=== PATIENT | female | born 1995 | race Caucasian/White ===

== ENCOUNTER 2022-03-31 20:33 | Emergency (ER) | payer BC ==
[~2022-03-31] VITALS: Ht 167.6 cm; Wt 131.5 kg
[2022-03-31 20:52] VITALS: BP_SYST 142
[2022-03-31] MEDS ORDERED: LIDOCAINE 1% IM ONE (21:30)
[2022-03-31] MEDS ORDERED: KETOROLAC TROMETHAMINE 60 MG/2 ML VIAL IM ONE (21:30)
[2022-03-31] MEDS ORDERED: CEFTRIAXONE IM ONE (21:30)
[2022-03-31] MEDS ORDERED: NITR-85 PO (21:43)
[2022-03-31] MEDS ORDERED: NAPR-690 PO (21:43)
[2022-03-31] MEDS ORDERED: ONDANSETRON 4 MG ODT TAB ONE (21:47)
[2022-03-31 21:55] VITALS: BP_SYST 122
[2022-03-31] MEDS ORDERED: ONDANSETRON 4 MG ODT TAB PO ONE (22:00)
[2022-04-01] MEDS ORDERED: PHEN-726 PO (19:04)
[2022-04-01] MEDS ORDERED: CEPH250C PO (19:04)
== END 2022-03-31 21:55 | disposition home or self-care (01) ==
LOC: SED 20:33
DX: N12 Tubulo-interstitial nephritis, not specified as acute or chronic (principal); Z79.899 Other long term (current) drug therapy
CPT/HCPCS: 81025; 96372; 99284; J0696; J1885; J2001; Q0162

== ENCOUNTER 2022-04-01 15:43 | Emergency (ER) | payer BC ==
[~2022-04-01] VITALS: Ht 160 cm; Wt 131.5 kg
[~2022-04-01 15:43] MED LIST: NAPR-690 PO; NITR-85 PO
[2022-04-01 15:50] VITALS: BP_SYST 142
[2022-04-01 16:43] LABS: HEMATOCRIT 36.7 % (36-48)
[2022-04-01 16:44] LABS: CALCIUM 8.7 mg/dL (8.4-11.0); CREATININE 0.88 mg/dL (0.55-1.30); POTASSIUM 4.2 mmol/L (3.5-5.1)
[2022-04-01 16:49] LABS: BASOPHILS # (AUTO) 0.1 K/uL (0.0-0.2); BASOPHILS % (AUTO) 0.6 % (0.0-2.0); EOSINOPHILS # (AUTO) 0.2 K/uL (0.0-0.4); EOSINOPHILS % (AUTO) 1.7 % (0.0-4.0); LYMPHOCYTES # (AUTO) 3.2 K/uL (1.0-5.5); LYMPHOCYTES % (AUTO) 29.9 % (20.5-51.5); MEAN CORPUSCULAR HEMOGLOBIN 27 pg (27-31); MEAN CORPUSCULAR HGB CONC 33 % (32-36); MEAN CORPUSCULAR VOLUME 82 fL (79.0-98.0); MONOCYTES # (AUTO) 0.7 K/uL (0.0-1.0); MONOCYTES % (AUTO) 6.2 % (1.7-9.3); NEUTROPHILS # (AUTO) 6.6 K/uL (1.8-7.7); NEUTROPHILS % (AUTO) 61.6 % (40.0-70.0); PLATELET COUNT (AUTO) 316 K/uL (130-430); RED BLOOD CELL COUNT(AUTO) 4.47 MIL/uL (4.2-6.2); RED CELL DISTRIBUTION WIDTH 14.7 % (9.0-15.0); WHITE BLOOD COUNT (AUTO) 10.7 K/uL (4.8-10.8)
[2022-04-01 16:50] LABS: ALBUMIN 3.1 g/dL (3.4-4.8); TOTAL BILIRUBIN 0.1 mg/dL (0.0-1.0)
[2022-04-01 17:20] LABS: BILIRUBIN,URINE NEGATIVE (NEGATIVE); BLOOD, URINE 3+ (NEGATIVE); CLARITY/URINE SL CLOUDY (CLEAR); COLOR,URINE RED (YELLOW); GLUCOSE,URINE NEGATIVE (NEGATIVE); KETONES,URINE NEGATIVE (NEGATIVE); NITRITE, URINE NEGATIVE (NEGATIVE); PROTEIN URINE 2+ (NEGATIVE); UROBILINOGEN,URINE 0.2 (0.2-1.0)
[2022-04-01 17:26] LABS: LEUKOCYTE ESTERASE ,URINE 2+ (NEGATIVE)
[2022-04-01 17:27] LABS: BACTERIA,URINE FEW /HPF (None Seen); RBC,URINE >100 /HPF (0-3); WBC,URINE 20-50 /HPF (0-3)
[2022-04-01 17:28] LABS: MUCUS,URINE None Seen /LPF (None Seen)
[2022-04-01] MEDS ORDERED: CEPH250C PO (19:04)
[2022-04-01] MEDS ORDERED: PHEN-726 PO (19:04)
[2022-04-01] MEDS ORDERED: CEPHALEXIN 250 MG/5 ML, 100 ML BTL PO ONE (19:30)
[2022-04-01 19:48] VITALS: BP_SYST 142
== END 2022-04-01 19:52 | disposition home or self-care (01) ==
LOC: SED 15:43
DX: N39.0 Urinary tract infection, site not specified (principal)
CPT/HCPCS: 36415; 76376; 80053; 81000; 81025; 83605; 83690; 85025; 87040; 99284

== ENCOUNTER 2022-10-07 22:50 | Emergency (ER) | payer BC ==
[~2022-10-07] VITALS: Ht 162.6 cm; Wt 134.3 kg
[~2022-10-07 22:50] MED LIST changes: +CEPH250C PO; +PHEN-726 PO
[2022-10-07 23:00] VITALS: BP_SYST 165
[2022-10-07] MEDS ORDERED: AUG875 PO (23:54)
[2022-10-07] MEDS ORDERED: HYDR-3917 PO (23:54)
[2022-10-07] MEDS ORDERED: IBUP-1969 PO (23:54)
[2022-10-08] MEDS ORDERED: MORPHINE 4 MG INJ. 4 MG/ML VIAL IM ONE
[2022-10-08] MEDS ORDERED: AMOXICILLIN/POTASSIUM CLAV 875 MG TABLET PO ONE
[2022-10-08 01:00] VITALS: BP_SYST 143
[2022-10-08] MEDS ORDERED: KETOROLAC TROMETHAMINE 60 MG/2 ML VIAL IM ONE (01:00)
== END 2022-10-08 01:00 | disposition home or self-care (01) ==
LOC: SED 22:50
DX: H60.92 Unspecified otitis externa, left ear (principal); H92.02 Otalgia, left ear; E11.9 Type 2 diabetes mellitus without complications; Z79.899 Other long term (current) drug therapy
CPT/HCPCS: 99284; 96374; 96372; J1885; J2270